=== PATIENT | female | born 1985 | race Two or more races ===

== ENCOUNTER 2024-07-04 19:54 | Emergency (ER) | payer OTHER ==
[~2024-07-04] VITALS: Ht 160 cm; Wt 75.1 kg
[2024-07-04 19:57] VITALS: BP 113/56; PULSE 91; RESP 17; TEMP 97.7; O2SAT 98
[2024-07-04] MEDS ORDERED: LIDOcaine 1% W/epiNEPHrine 1:200,000 10ml vial IJ STA (21:06)
[2024-07-04] MEDS: LIDOcaine 1% 30ml preserv. free vial IJ STA (21:08)
[2024-07-05] MEDS ORDERED: SULF1TAB49 PO (01:00)
[2024-07-05] MEDS: sulfamethoxazole/trimethoprim DS (800/160mg) tablet PO STA (01:02)
== END 2024-07-05 01:19 | disposition home or self-care (01) ==
LOC: ER 19:54
DX: L60.0 Ingrowing nail (principal); L03.032 Cellulitis of left toe; M79.675 Pain in left toe(s); M79.89 Other specified soft tissue disorders
CPT/HCPCS: 11740; 99284; L3260; A6258

== ENCOUNTER 2024-12-16 02:42 | Emergency (ER) | payer MEDICAID ==
[~2024-12-16] VITALS: Ht 165.1 cm; Wt 86.4 kg
--- NOTE | 2024-12-16 03:02 | Physician Documentation ---
History of Present Illness General Chief Complaint: Finger pain Stated Complaint: LEFT HAND FINGER SWELLING Time Seen by MD: 03:02 History of Present Illness Initial Comments The patient is a 39-year-old female states she pulled a hangnail from her ring finger on the left hand three days ago and she developed swelling and redness and now she is complaining of pain to that side as well as the redness in the swollen. She denies any fevers patient states pain is moderate and persistent. Patient denies any allergies. Patient has been taking ibuprofen for the pain. The patient denies any purulent drainage. Medication Reconciliation Allergies: Coded Allergies: No Known Allergies (Unverified , 07/04/24) Scheduled Cephalexin*Monohydrate* (Keflex*), 2 CAP PO BID Past Medical History Past Medical History: No Pertinent History Review of Systems All Other Systems at this time: Reviewed and Negative Physical Exam Physical Exam Vital Signs: Temperature: 98.1, Source: Oral, Heart Rate: 72, Respiratory Rate: 16, BP: 141/96, Pulse Oximetry: 98, Weight: 86.400 Oxygen Flow Rate: 0 Physical Exam VITALS: Reviewed and as above. GENERAL: Alert, no apparent distress. HEENT: Normocephalic, atraumatic, PERRL, EOMI, dry mucosa, no erythema MUSCULOSKELETAL: No deformities, no edema SKIN: Warm and dry, the patient has some swelling and erythema to the distal phalanx dorsally of the left ring finger there is no fluctuance or induration. NEURO: Oriented x4, No motor or sensory deficit PSYCH: Normal mood and affect, no agitation Progress Results/Orders Results/Orders Completed Orders - GARRISON SUAZO MD Cephalexin Capsule (Keflex Capsule) (12/16/24 03:10) Ketorolac Trometh 15mg/Ml Vial (Toradol (12/16/24 03:10) Medications Received in ER Medications (Trade) Dose Ordered Sig/Luma Route PRN Reason Start Time Stop Time Status Last Admin Dose Admin (Keflex capsule) 500 mg ONCE ONCE PO 12/16/24 03:10 12/16/24 03:11 DC 12/16/24 03:27 500 MG (Toradol injection) 15 mg ONCE ONCE IM 12/16/24 03:10 12/16/24 03:11 DC 12/16/24 03:28 15 MG Vital Signs 12/16/24 12/16/24 02:52 03:28 Temp 98.1 Pulse 72 Resp 16 14 B/P (MAP) 141/96 Pulse Ox 98 O2 Flow Rate 0 Medical Decision Making Findings Patient has what appears to be cellulitis of the distal finger there was no dr dejesus abscess the patient will be given a shot of Toradol and a dose of Keflex here she will be prescribed Keflex patient will be discharged Departure Impression: Primary Impression: Cellulitis Qualified Codes: L03.012 - Cellulitis of left finger Discharge Instructions: Cellulitis, Adult, [id number] Referrals: NO PRIMARY CARE PROVIDER (PCP) Prescriptions Cephalexin*Monohydrate* (Keflex*) 500 Mg Capsule 2 CAP PO BID, #[id number] CAP Prov: GARRISON SUAZO MD 12/16/24 GARRISON SUAZO MD Dec 16, 2024 03:02
[2024-12-16] MEDS ORDERED: CEPH-585 PO (03:10)
[2024-12-16] MEDS: ketorolac trometh 15mg/ml vial 15 MG/ML ML IM ONE (03:28)
[2024-12-16 04:14] VITALS: BP 117/80; PULSE 63; RESP 12; TEMP 98.1; O2SAT 98
== END 2024-12-16 04:16 | disposition home or self-care (01) ==
LOC: ER 02:43
DX: L03.012 Cellulitis of left finger (principal)
CPT/HCPCS: 96372; 99283; J1885